=== PATIENT | female | born 1975 | race Caucasian/White ===

== ENCOUNTER 2018-05-19 08:25 | Inpatient (IN) | payer BC ==
[2018-05-19] MEDS ORDERED: ELECTROLYTE-148 SOLN 500 ML IV ONE (08:30)
[2018-05-19] MEDS: ELECTROLYTE-148 SOLN 1,000 ML IV SCH (09:05)
--- NOTE | 2018-05-19 09:09 | HP ---
Past Medical History - Primary Care Physician PCP:: Gretchen Robles - Admission Chief Complaint: Previous Ceasrean Section. Lack of movement History of Present Illness: 43 yo with previous Section for repeat Section History Source: Patient Limitations to Obtaining History: No Limitations - Past Medical History ...: 3 ...Para: 2 - Past Surgical History Past Surgical History: Yes: Hx Myomectomy: No Hx Transabdominal Cerclage: No - Smoking History Have you smoked in the past 12 months: No - Alcohol/Substance Use Hx Alcohol Use: No History of Substance Use: reports: None - Social History Usual Living Arrangement: Yes: With Spouse History of Recent Travel: No Home Medications - Allergies Allergies/Adverse Reactions: Allergies Allergy/AdvReac Type Severity Reaction Status Date / Time No Known Drug Allergies Allergy Verified 05/19/18 11:45 - Home Medications Home Medications: Ambulatory Orders Acetaminophen [Tylenol -] 500 mg PO PRN PRN 04/05/18 Vitamins (Sjr) - 1 tab PO DAILY 04/05/18 Physical Exam - Maternity Constitutional: Yes: Well Nourished, No Distress Neck: Yes: WNL, Supple Lungs: Clear to auscultation Breast(s): Yes: WNL - Abdominal Exam/OB Fundal Height: 40 Number of Fetuses: Single Presentation: Vertex Contractions: No Monitor Mode: External Category: I Accelerations: Non-Uniform Decelerations: None - Vaginal Exam/OB Speculum Exam: No Dilatation (cm): closed Amniotic Membrane Status: Intact Presentation: Vertex/Position - Physical Exam Musculoskeletal: Yes: WNL Extremities: Yes: WNL Edema: No Integumentary: Yes: WNL Psychiatric: Yes: WNL, Alert, Oriented Hemorrhage Risk Assessment - Risk Factors Medium Risk Factors: Yes: Prior , uterine surgery,or multiple laparotomies Risk Score: 1 Risk Level: Medium Risk Problem List - Problems (1) Previous delivery affecting , antepartum Code(s): O34.219 - MATERNAL CARE FOR UNSP TYPE SCAR FROM PREVIOUS DEL Assessment/Plan Previous CS IUP @39 week Plan Repeat Section
[2018-05-19] MEDS ORDERED: METHYLERGONOVINE MALEATE 0.2 MG/1 ML AMP IM PRN (09:10)
[2018-05-19 09:22] VITALS: BMI 30.7
[2018-05-19] MEDS ORDERED: ONDANSETRON 4 MG/2 ML VIAL IVPUSH PRN (09:32)
[2018-05-19] MEDS ORDERED: morphine SULFATE/Preservative Free 0.5 MG/ML (1cc Syringe) ONE (09:40)
[2018-05-19] MEDS ORDERED: BUPIVACAINE 0.75% IN DEXTROSE/PF 2ML AMPULE NR ONE (09:42)
[2018-05-19] MEDS ORDERED: KETOROLAC TROMETHAMINE 30 MG/1 ML VIAL ONE (09:47)
[2018-05-19] MEDS ORDERED: OXYTOCIN 10 UNITS/ML VIAL ONE (09:57)
[2018-05-19] MEDS ORDERED: SODIUM CHLORIDE 0.9% P/F 10 ML VIAL IJ ONE ×2 (09:57→10:21)
[2018-05-19] MEDS ORDERED: PHENYLEPHRINE HCL 10 MG/1 ML SINGLE DOSE VIAL ONE (09:57)
[2018-05-19] MEDS ORDERED: MIDAZOLAM HCL 2 MG/2 ML SINGLE DOSE VIAL ONE (10:13)
[2018-05-19] MEDS ORDERED: DEXAMETHASONE SOD PHOSPHATE 4 MG/1 ML VIAL ONE (10:16)
[2018-05-19 10:43] LABS: VENOUS PC02 50.4 mmHg (38-52); VENOUS PH 7.35 (7.32-7.42); VENOUS PO2 21.1 mmHg (28-48)
[2018-05-19] MEDS ORDERED: CITRIC ACID/SODIUM CITRATE 30 ML UNIT-DOSE CUP PO ONE (10:52)
--- NOTE | 2018-05-19 10:54 | OP ---
Operative Note - Note: Operative Date: 05/19/18 Pre-Operative Diagnosis: Previous Section. bilateral salpingectomy Operation: Repeat Section. Bilateral Salpingectomy Findings: NOrmal tubes and ovaries live male Post-Operative Diagnosis: Same as Pre-op Surgeon: Gretchen Robles Outside Sales Inspector: Dipesh Camp Anesthesia: Spinal Estimated Blood Loss (mls): 500 Operative Report Dictated: Yes
[2018-05-19] MEDS ORDERED: OXYTOCIN 20 UNITS in 0.9% NS 20 UNIT/1,000 ML INFUS.BAG IV ONE (11:39)
[2018-05-19] MEDS: OXYTOCIN 20 UNITS in 0.9% NS 20 UNIT/1,000 ML INFUS.BAG IV SCH (11:44)
[2018-05-19] MEDS: IBUPROFEN 800 MG/8 ML IJ IVPB PRN ×2 (12:30→20:02)
[2018-05-19] MEDS ORDERED: IBUPROFEN 800 MG/8 ML IJ IVPB ONE (12:31)
--- NOTE | 2018-05-19 12:32 | OP ---
DATE OF OPERATION: 05/19/2018 PREOPERATIVE DIAGNOSIS: Previous section, intrauterine at 39 weeks, multiparity, voluntary sterilization. OPERATION: Bilateral salpingectomy and primary low-transverse section. POSTOPERATIVE DIAGNOSIS: Live male , normal tubes. FINDINGS: Normal tubes and ovaries and live male infant delivered in OT position. SURGEON: Gretchen Robles MD LINOTYPE MACHINIST: SHAHLA Andrew. unavailable. ANESTHESIA: Spinal. PROCEDURE: The patient was taken to the operating room, placed in supine position, prepped and draped in the usual sterile fashion. Timeout was performed in accordance with hospital regulation. A Pfannenstiel skin incision was made with a scalpel. Cautery was then used to go through layers of abdominal wall to the level of the fascia. Fascia was cut in the midline. Cautery was then used to open the fascia in smiling fashion. Kochers then used to bluntly and sharply dissect the rectus muscle, the fascial muscles split in midline. Peritoneal cavity was then entered and carried upward and downward. Bladder retractors then placed. Vesicouterine reflection was then taken down. Scalpel was then used to make a low transverse uterine incision. The incision was carried upward using the bandage scissors. A live male infant was delivered in OT position. Nose and mouth suction performed. Shoulders were delivered without difficulty. DeLee cord clamping was done, cord pH was done, cord blood sampling was done. Placenta was manually extracted from the uterus. The infant was handed to hearing aid assistant. A live male was handed to the hearing aid assistant. Uterus exteriorized and cleaned with clean lap pads. Uterine incision then closed using 0 Biosyn suture, 1st layer continuous interlocking, 2nd layer imbricating the 1st layer. Tubes and ovaries were noted to be normal. LigaSure was then used to do a bilateral salpingectomy. The tubes were then bilaterally submitted to Pathology. Hemostasis was achieved. Abdominal cavity cleaned with clean lap pads. Uterus interiorized, cleaned with clean lap pads. Peritoneum closed using 0 Biosyn suture. Muscle approximated in midline using 0 Biosyn suture. Fascia was then closed using 0 Vicryl suture in 2 parts. Subcutaneous was then closed using interrupted sutures using 0 Biosyn suture, and skin was then closed using 3-0 Vicryl in subcuticular fashion. Wound was washed and dressed. Steri-Strips placed. Estimated blood loss 600 mL. GRETCHEN ROBLES M.D. FERNANDO/[id number]
[2018-05-20] MEDS: IBUPROFEN 800 MG/8 ML IJ IVPB PRN (05:09)
[2018-05-20 07:27] LABS: BASO % 0.3 % (0-2.0); EOS % 0.5 % (0-4.5); HEMOGLOBIN 10.6 GM/dL (10.7-15.3); LYMPH % 15.3 % (8-40); MCH 31.8 pg (25.7-33.7); MCHC 33.1 g/dl (32.0-36.0); MEAN PLT VOLUME 11.3 fl (7.5-11.1); NEUT % 78.9 % (42.8-82.8); PLATELET COUNT 95 K/MM3 (134-434); RBC 3.33 M/mm3 (3.60-5.2); RDW 13.8 % (11.6-15.6); WHITE BLOOD COUNT 11.3 K/mm3 (4.0-10.0)
--- NOTE | 2018-05-20 07:44 | PN ---
Progress Note (SOAP) - Subjective Chief Complaint: Pt doing well - Current Medications Current Medications: Active Medications Bisacodyl (Dulcolax Suppository -) 10 mg RC PRN PRN PRN Reason: CONSTIPATION Diphenhydramine HCl (Benadryl Injection -) 25 mg IVPUSH Q4H PRN PRN Reason: Pruritis Last Admin: 05/19/18 12:15 Dose: 25 mg Diphtheria/Tetanus/Acell Pertussis (Boostrix -) 0.5 ml IM .ONCE ONE Stop: 05/20/18 10:01 Oxytocin/Sodium Chloride (Normal Saline+20 Units Oxytocin -) 20 unit in 1,000 mls @ 125 mls/hr IV [facility] Last Admin: 05/19/18 11:44 Dose: 125 mls/hr Parenteral Electrolytes (Plasma-Lyte 148 -) 1,000 mls @ 125 mls/hr IV [facility] Last Admin: 05/19/18 09:05 Dose: 125 mls/hr Ibuprofen (Caldolor Injection -) 800 mg IVPB Q8H PRN PRN Reason: FEVER Last Admin: 05/20/18 05:09 Dose: 800 mg Ibuprofen (Motrin -) 600 mg PO Q4H PRN PRN Reason: PAIN LEVEL 1 - 3 Methylergonovine Maleate (Methergine Injection -) 0.2 mg IM Q4H PRN PRN Reason: Excessive Bleeding (L&D) Ondansetron HCl (Zofran Injection) 4 mg IVPUSH Q4H PRN PRN Reason: NAUSEA Oxycodone HCl (Roxicodone -) 5 mg PO Q4H PRN PRN Reason: PAIN LEVEL 4 - 6 Oxycodone HCl (Roxicodone -) 10 mg PO Q4H PRN PRN Reason: PAIN LEVEL 7 - 10 Multivit/Folic Acid/Iron ( Vitamins (Sjr) -) 1 tab PO DAILY KARRIE Simethicone (Mylicon -) 80 mg PO Q4H PRN PRN Reason: GAS - Objective Vital Signs: Vital Signs Temperature 98.3 F 05/20/18 07:31 Pulse Rate 85 05/20/18 07:31 Respiratory Rate 18 05/20/18 07:31 Blood Pressure 98/53 05/20/18 07:31 O2 Sat by Pulse Oximetry (%) 100 05/19/18 21:00 Constitutional: Yes: Well Nourished, No Distress Gastrointestinal: Yes: WNL, Normal Bowel Sounds, Soft, Abdomen, Obese Breast(s): Yes: WNL Musculoskeletal: Yes: WNL Extremities: Yes: WNL Peripheral Pulses WNL: No Labs Lab Results: CBC, BMP 05/20/18 06:30 Problem List - Problems (1) Previous delivery affecting , antepartum Code(s): O34.219 - MATERNAL CARE FOR UNSP TYPE SCAR FROM PREVIOUS DEL (2) Delivery by (planned) section occurring after 37 completed weeks of gestation but before 39 completed weeks gestation due to (spontaneous) onset of labor, with mention of complication Code(s): O75.82 - ONSET LABOR 37-39 WEEKS, W DEL BY (PLANNED) SECTION Assessment/Plan POD1 table Plan OOB Percocet
[2018-05-20] MEDS ORDERED: BISACODYL 10 MG SUPP.RECT RC PRN (09:10)
[2018-05-20] MEDS: PRENATAL VITAMINS W/ FOLIC ACID TABLET (FP) PO SCH (09:44)
[2018-05-20] MEDS ORDERED: DIPHTH,PERTUSS(ACELL),TET 0.5 ML DISP.SYRIN IM ONE (10:00)
[2018-05-20] MEDS: IBUPROFEN 600 MG TABLET (FP) PO PRN ×3 (12:23→20:52)
[2018-05-20] MEDS: SIMETHICONE 80 MG TAB.CHEW (FP) PO PRN ×3 (12:23→20:52)
[2018-05-20] MEDS: oxyCODONE HCL 5 MG TABLET PO PRN ×3 (12:24→20:53)
--- NOTE | 2018-05-20 12:59 | PN ---
Progress Note (short form) - Note Progress Note: POD #1 - s/p under spinal with duramorph. VSS. Pt. doing well, resting comfortably in bed. No complaints. Good pain control. No apparent anesthetic complications noted. Continue current care.
[2018-05-20] MEDS: ELECTROLYTE-148 SOLN 1,000 ML IV SCH (14:00)
[2018-05-20] MEDS: OXYTOCIN 20 UNITS in 0.9% NS 20 UNIT/1,000 ML INFUS.BAG IV SCH (14:02)
[2018-05-21] MEDS: SIMETHICONE 80 MG TAB.CHEW (FP) PO PRN ×4 (05:49→23:05)
[2018-05-21] MEDS: IBUPROFEN 600 MG TABLET (FP) PO PRN ×4 (05:49→23:08)
[2018-05-21] MEDS: oxyCODONE HCL 5 MG TABLET PO PRN ×4 (05:50→23:07)
[2018-05-21] MEDS: PRENATAL VITAMINS W/ FOLIC ACID TABLET (FP) PO SCH (09:53)
--- NOTE | 2018-05-21 22:17 | PN ---
Progress Note (SOAP) - Subjective Chief Complaint: Pt doing well Pt with gas pain - Current Medications Current Medications: Active Medications Bisacodyl (Dulcolax Suppository -) 10 mg RC PRN PRN PRN Reason: CONSTIPATION Last Admin: 05/21/18 19:38 Dose: 10 mg Diphenhydramine HCl (Benadryl Injection -) 25 mg IVPUSH Q4H PRN PRN Reason: Pruritis Last Admin: 05/19/18 12:15 Dose: 25 mg Ibuprofen (Caldolor Injection -) 800 mg IVPB Q8H PRN PRN Reason: FEVER Last Admin: 05/20/18 05:09 Dose: 800 mg Ibuprofen (Motrin -) 600 mg PO Q4H PRN PRN Reason: PAIN LEVEL 1 - 3 Last Admin: 05/21/18 15:40 Dose: 600 mg Methylergonovine Maleate (Methergine Injection -) 0.2 mg IM Q4H PRN PRN Reason: Excessive Bleeding (L&D) Ondansetron HCl (Zofran Injection) 4 mg IVPUSH Q4H PRN PRN Reason: NAUSEA Oxycodone HCl (Roxicodone -) 5 mg PO Q4H PRN PRN Reason: PAIN LEVEL 4 - 6 Last Admin: 05/21/18 15:39 Dose: 5 mg Oxycodone HCl (Roxicodone -) 10 mg PO Q4H PRN PRN Reason: PAIN LEVEL 7 - 10 Multivit/Folic Acid/Iron ( Vitamins (Sjr) -) 1 tab PO DAILY KARRIE Last Admin: 05/21/18 09:53 Dose: 1 tab Simethicone (Mylicon -) 80 mg PO Q4H PRN PRN Reason: GAS Last Admin: 05/21/18 15:39 Dose: 80 mg - Objective Vital Signs: Vital Signs Temperature 97.8 F 05/21/18 08:44 Pulse Rate 80 05/21/18 08:44 Respiratory Rate 20 05/21/18 08:44 Blood Pressure 104/66 05/21/18 08:44 O2 Sat by Pulse Oximetry (%) 100 05/19/18 21:00 Constitutional: Yes: Well Nourished, No Distress Cardiovascular: Yes: WNL Gastrointestinal: Yes: WNL, Normal Bowel Sounds, Soft ....Post : Yes: Uterus firm, Uterus non-tender Breast(s): Yes: WNL Musculoskeletal: Yes: WNL Extremities: Yes: WNL Edema: No Wound/Incision: Yes: Steri Strips, Open to air Neurological: Yes: WNL, Alert, Oriented Psychiatric: Yes: WNL, Alert, Oriented Labs Lab Results: CBC, BMP 05/20/18 06:30 Problem List - Problems (1) Previous delivery affecting , antepartum Code(s): O34.219 - MATERNAL CARE FOR UNSP TYPE SCAR FROM PREVIOUS DEL (2) Delivery by (planned) section occurring after 37 completed weeks of gestation but before 39 completed weeks gestation due to (spontaneous) onset of labor, with mention of complication Code(s): O75.82 - ONSET LABOR 37-39 WEEKS, W DEL BY (PLANNED) SECTION Assessment/Plan POD2 stable Plan OOB Percocet DC home in am
[2018-05-21] MEDS ORDERED: DOCUSATE SODIUM 100 MG CAPSULE (FP) PO PRN (22:21)
[2018-05-22] MEDS: SIMETHICONE 80 MG TAB.CHEW (FP) PO PRN ×3 (04:13→16:51)
[2018-05-22] MEDS: oxyCODONE HCL 5 MG TABLET PO PRN ×3 (04:13→16:52)
[2018-05-22] MEDS: IBUPROFEN 600 MG TABLET (FP) PO PRN ×3 (04:13→16:51)
[2018-05-22 07:15] LABS: BASO % 0.2 % (0-2.0); EOS % 2.2 % (0-4.5); HEMATOCRIT 32.9 % (32.4-45.2); HEMOGLOBIN 11.4 GM/dL (10.7-15.3); LYMPH % 15.1 % (8-40); MCH 32.9 pg (25.7-33.7); MCHC 34.5 g/dl (32.0-36.0); MEAN CELL VOLUME 95.4 fl (80-96); MEAN PLT VOLUME 10.8 fl (7.5-11.1); MONO % 4.1 % (3.8-10.2); NEUT % 78.4 % (42.8-82.8); PLATELET COUNT 146 K/MM3 (134-434); RBC 3.45 M/mm3 (3.60-5.2); RDW 13.8 % (11.6-15.6); WHITE BLOOD COUNT 9.1 K/mm3 (4.0-10.0)
[2018-05-22 08:40] VITALS: BP 96/61; PULSE 90; TEMP 97.8
[2018-05-22] MEDS: PRENATAL VITAMINS W/ FOLIC ACID TABLET (FP) PO SCH (09:51)
--- NOTE | 2018-05-24 13:02 | PATH ---
Surgical Pathology Report Patient Name: BILLY MARTINES [facility]. Rec. #: [id number] /Age/Gender: 1975 (Age: 43) / F Account: [id number] Location: [facility] OBS/REHAB NURSE Taken: 05/19/2018 Received: 05/20/2018 Reported: 05/24/2018 Physicians: Gretchen Robles M.D. Specimen(s) Received A: PLACENTA B: RIGHT FALLOPIAN TUBE C: LEFT FALLOPIAN TUBE Clinical History for repeat and bilateral salpingectomy Term -39 weeks, 2010 Final Diagnosis A. PLACENTA, SECTION: 631 g THIRD TRIMESTER PLACENTA WITH TRIVASCULAR UMBILICAL CORD AND UNREMARKABLE PLACENTAL MEMBRANES. B. FALLOPIAN TUBE, RIGHT, SALPINGECTOMY: FULL LUMINAL PORTION OF UNREMARKABLE FALLOPIAN TUBE. C. FALLOPIAN TUBE, LEFT, SALPINGECTOMY: FULL LUMINAL PORTION OF UNREMARKABLE FALLOPIAN TUBE. Electronically Signed Adamaris Quiñones M.D. Gross Description A. The specimen is received fresh labeled placenta and is a 631 gram, 23.0 x 17.0 x 2.5 cm. placenta with attached membranes and umbilical cord. The attached membranes are yates, translucent with focal opacities and insert marginally. The umbilical cord measures 11 cm. in length and averages 1.4 cm. in diameter. The cord inserts centrally. No true knots or strictures are identified. Cut surface of the umbilical cord reveals 3 vessels. The surface is jimenez blue with moderate fibrin deposition and appropriate caliber vessel. The maternal surface is red-brown with focal defects. Sectioning reveals red-brown, spongy parenchyma. No lesions are identified. Collections Clerk sections are submitted in three cassettes as follows: 1- membrane rolls and umbilical cord; 2-3- full thickness sections of placenta. B. Received in formalin labeled "right fallopian tube," is a 5 cm in length fimbriated fallopian tube. The outer surface is renae purple and smooth. Sectioning reveals an unremarkable lumen. Collections Clerk sections are submitted in 2 cassettes as follows: 1-fimbria; 2-cross sections of fallopian tube. C. Received in formalin labeled "left fallopian tube," is a 2 cm in length fimbriated fallopian tube. The outer surface is renae purple and smooth. Sectioning reveals an unremarkable lumen. Collections Clerk sections are submitted in 2 cassettes as follows: 1-fimbria; 2-cross sections of fallopian tube. 05/23/2018 saudi05/23/2018
== END 2018-05-22 19:30 | disposition home or self-care (01) | DRG 766 ==
LOC: JLDR 08:25 → J3W 12:40
PROVIDERS: ADMIT Obstetrics & Gynecology; ATTEND Obstetrics & Gynecology
PROC: 10D00Z1 Extraction of Products of Conception, Low, Open Approach (ICD-10-PCS; principal; 2018-05-19)
PROC: 0UB70ZZ Excision of Bilateral Fallopian Tubes, Open Approach (ICD-10-PCS; 2018-05-19)
DX: O34.219 Maternal care for unspecified type scar from previous cesarean delivery (principal); Z3A.39 39 weeks gestation of pregnancy; Z37.0 Single live birth; Z30.2 Encounter for sterilization
CPT/HCPCS: 36415; 71045-TC-FY; 82803; 85025; 90715